=== PATIENT | male | born 1960 ===

== ENCOUNTER 2024-04-27 05:31 | Day surgery (SDC) | payer OTHER ==
[~2024-04-27 05:31] MED LIST: ATORVASTATIN CA10 MG; ZESTRIL20 MG
[2024-04-27] MEDS ORDERED: METRONIDAZOLE/SODIUM CHLORIDE 500 MG/100 ML PIGGYBACK IV ONE (08:45)
[2024-04-27] MEDS ORDERED: BUPIVACAINE HCL/MPF 0.5% 30ML VIAL ONE (10:48)
[2024-04-27] MEDS ORDERED: DIBUCAINE 30 GM TUBE ONE (10:48)
[2024-04-27] MEDS ORDERED: LIDOCAINE HCL 1%/EPINEPHRINE 20ML VIAL IJ ONE (10:49)
[2024-04-27] MEDS ORDERED: POVIDONE-IODINE 118 ML BOTT TOP ONE (10:49)
[2024-04-27] MEDS ORDERED: HEMOSTATIC MATRIX 1 KIT KIT TOP ONE (10:49)
== END 2024-04-27 17:55 | disposition home or self-care (01) ==
LOC: CIR.AMB 05:31
PROVIDERS: ATTEND Colon & Rectal Surgery
DX: D12.9 Benign neoplasm of anus and anal canal (principal); K62.82 Dysplasia of anus; A63.0 Anogenital (venereal) warts; Z88.0 Allergy status to penicillin